=== PATIENT | female | born 1950 | race American Indian/Alaskan Native ===

== ENCOUNTER 2019-11-18 20:52 | Emergency (ER) | payer MEDICARE ==
[2019-11-18] MEDS ORDERED: methylPREDNISolone Sod Succinate 125 MG/2 ML INJ IV ONE (21:08)
[2019-11-18] MEDS ORDERED: ALBUTEROL 2.5 MG/3 ML NEBU IH ONE ×3 (21:08→22:46)
[2019-11-18] MEDS ORDERED: IPRATROPIUM 0.02% NEBU 2.5 ML IH ONE ×2 (21:08→21:41)
[2019-11-18] MEDS ORDERED: MAGNESIUM SULFATE 2 GM/50 ML BAG IV ONE ×2 (21:08→22:26)
--- NOTE | 2019-11-18 21:08 | Event Note ---
ED Screening Note Date of service: 11/18/19 Time: 21:06 ED Screening Note: 69 y o female with pmh of asthma presents iwth sob positive intermittent productive cough no relief with nebs albuterol and symbicort inhaler This initial assessment/diagnostic orders/clinical plan/treatment(s) is/are [place] bject to change based on patients health status, clinical progression and re- assessment by fellow clinical providers in the ED. Further treatment and workup at subsequent clinical providers discretion. Patient/guardian urged not to elope from the ED as their condition may be serious if not clinically assessed and managed. Initial orders include: resp treatment steroids cxr acc eval
--- NOTE | 2019-11-18 21:46 | Emergency Department Report ---
ED Shortness of Breath HPI - General Chief Complaint: Dyspnea/Respdistress Stated Complaint: SHORTNESS OF BREATH Time Seen by Provider: 11/18/19 21:37 Source: patient Mode of arrival: Ambulatory Limitations: No Limitations - History of Present Illness Initial Comments: Patient is 69 years old female with history of asthma and hypertension and coronary artery disease. Patient presented to the ER complaining of 5 day history of shortness of breath, wheezing or difficulty in breathing and cough, nonproductive. Patient denied any fever or chills. No chest pain. No nausea or vomiting. MD Complaint: shortness of breath, cough, "asthma attack" -: days(s) Known History Of: asthma Context: recent URI - Related Data Home Medications Medication Instructions Recorded Confirmed Last Taken ALBUTEROL Inhaler (OR & NICU) 2 puff IH QID PRN 09/15/13 09/21/13 09/21/13 05:00 [ProAir HFA Inhaler] Beclomethasone Dipropionate [Qvar 2 inhalation IH BID 09/15/13 09/21/13 09/21/13 05:00 80MCG] Esomeprazole Magnesium [NexIUM] 40 mg PO QDAY 09/15/13 09/21/13 09/20/13 Loratadine (Nf) [Claritin (Nf)] 10 mg PO DAILY 09/15/13 09/21/13 09/15/13 Losartan [Cozaar] 100 mg PO QDAY 09/15/13 09/15/13 Unknown Oxybutynin [Ditropan] 5 mg PO TID 09/15/13 09/21/13 09/20/13 Oxycodone HCl/Acetaminophen 1 each PO Q6HR PRN 09/15/13 09/21/13 09/20/13 [Percocet 7.5/325 mg] Pravastatin Sodium [Pravastatin] 40 mg PO QHS 09/15/13 09/21/13 09/07/13 Sucralfate [Carafate] 1 gm PO ONCE 09/15/13 09/15/13 Unknown hydroCHLOROthiazide [HCTZ] 12.5 mg PO QDAY 09/15/13 09/15/13 Unknown hydroCHLOROthiazide [HCTZ] 12.5 mg PO QDAY 09/15/13 09/21/13 09/21/13 05:00 Previous Rx's Medication Instructions Recorded Last Taken Type Clopidogrel Bisulfate [Plavix] 75 mg PO DAILY #30 tablet 09/23/13 Unknown Rx Hydrocodone Bit/Acetaminophen 1 each PO Q6H PRN #30 tablet 09/23/13 Unknown Rx [Lortab 7.5-500 Tablet] Allergies Allergy/AdvReac Type Severity Reaction Status Date / Time adhesive Allergy Rash Verified 09/21/13 06:59 amoxicillin trihydrate Allergy Hives Verified 09/21/13 06:28 [From Augmentin] cefaclor [From Ceclor] Allergy Anaphylaxis Verified 09/21/13 06:59 potassium clavulanate Allergy Hives Verified 09/21/13 06:28 [From Augmentin] meperidine HCl [From Demerol] AdvReac Vomiting Verified 09/21/13 06:28 tetracycline [Tetracycline] AdvReac Vomiting Verified 09/21/13 06:28 ED Review of Systems ROS: Stated complaint: SHORTNESS OF BREATH Other details as noted in HPI Comment: All other systems reviewed and negative Constitutional: denies: chills, fever Respiratory: cough, shortness of breath, SOB with exertion, SOB at rest, wheezing. denies: orthopnea, stridor Cardiovascular: denies: chest pain, palpitations Gastrointestinal: denies: abdominal pain, nausea, vomiting Musculoskeletal: denies: back pain Neurological: denies: headache, weakness, numbness, paresthesias, confusion, abnormal gait ED Past Medical Hx - Past Medical History Previous Medical History?: Yes Hx Hypertension: Yes (2009) Hx Congestive Heart Failure: No Hx Diabetes: No Hx GERD: Yes Hx Arthritis: Yes Hx Asthma: Yes Hx COPD: No - Surgical History Past Surgical History?: Yes Hx Cholecystectomy: Yes - Social History Smoking Status: Former Smoker Substance Use Type: None - Medications Home Medications: Home Medications Medication Instructions Recorded Confirmed Last Taken Type ALBUTEROL Inhaler (OR & NICU) 2 puff IH QID PRN 09/15/13 09/21/13 09/21/13 05:00 History [ProAir HFA Inhaler] Beclomethasone Dipropionate [Qvar 2 inhalation IH BID 09/15/13 09/21/13 09/21/13 05:00 History 80MCG] Esomeprazole Magnesium [NexIUM] 40 mg PO QDAY 09/15/13 09/21/13 09/20/13 History Loratadine (Nf) [Claritin (Nf)] 10 mg PO DAILY 09/15/13 09/21/13 09/15/13 History Losartan [Cozaar] 100 mg PO QDAY 09/15/13 09/15/13 Unknown History Oxybutynin [Ditropan] 5 mg PO TID 09/15/13 09/21/13 09/20/13 History Oxycodone HCl/Acetaminophen 1 each PO Q6HR PRN 09/15/13 09/21/13 09/20/13 History [Percocet 7.5/325 mg] Pravastatin Sodium [Pravastatin] 40 mg PO QHS 09/15/13 09/21/13 09/07/13 History Sucralfate [Carafate] 1 gm PO ONCE 09/15/13 09/15/13 Unknown History hydroCHLOROthiazide [HCTZ] 12.5 mg PO QDAY 09/15/13 09/15/13 Unknown History hydroCHLOROthiazide [HCTZ] 12.5 mg PO QDAY 09/15/13 09/21/13 09/21/13 05:00 History Clopidogrel Bisulfate [Plavix] 75 mg PO DAILY #30 tablet 09/23/13 Unknown Rx Hydrocodone Bit/Acetaminophen 1 each PO Q6H PRN #30 tablet 09/23/13 Unknown Rx [Lortab 7.5-500 Tablet] ED Physical Exam - General Limitations: No Limitations General appearance: alert, in no apparent distress - Head Head exam: Present: atraumatic, normocephalic, normal inspection - Eye Eye exam: Present: normal appearance - ENT ENT exam: Present: normal exam, normal orophraynx, mucous membranes moist - Neck Neck exam: Present: normal inspection, full ROM. Absent: tenderness, meningismus - Respiratory Respiratory exam: Present: wheezes, rhonchi. Absent: rales, stridor, accessory muscle use, decreased breath sounds, prolonged expiratory - Cardiovascular Cardiovascular Exam: Present: regular rate, normal rhythm, normal heart sounds - GI/Abdominal GI/Abdominal exam: Present: soft, normal bowel sounds. Absent: distended, tenderness, guarding, rebound, rigid, organomegaly, mass, bruit, pulsatile mass, hernia - Extremities Exam Extremities exam: Present: normal inspection, full ROM, normal capillary refill. Absent: tenderness, pedal edema, calf tenderness - Back Exam Back exam: Present: normal inspection, full ROM. Absent: CVA tenderness (R), CVA tenderness (L) - Neurological Exam Neurological exam: Present: alert, oriented X3, CN II-XII intact, normal gait, reflexes normal - Psychiatric Psychiatric exam: Present: normal mood - Skin Skin exam: Present: warm, intact, normal color ED Course Vital Signs 11/18/19 11/18/19 20:57 22:57 Temperature 98.8 F Pulse Rate 95 H Respiratory 18 20 Rate Blood Pressure 153/84 O2 Sat by Pulse 95 94 Oximetry ED Medical Decision Making - Lab Data Result diagrams: 11/18/19 22:45 11/18/19 22:45 - Radiology Data Radiology results: report reviewed - Medical Decision Making Patient is 69 years old female with history of asthma and hypertension and coronary artery disease. Patient presented to the ER complaining of 5 day history of shortness of breath, wheezing or difficulty in breathing and cough, nonproductive. Patient denied any fever or chills. No chest pain. No nausea or vomiting. Patient received albuterol, Atrovent, Solu-Medrol and magnesium sulfate. Patient stated that she is feeling much better. Labs reviewed and is unremarkable. Chest x-ray is negative for acute finding. Patient given prescription for prednisone and advised to follow-up with her primary care physician in the next 2-3 days and to return to the ER if symptoms are not improved. Critical care attestation.: If time is entered above; I have spent that time in minutes in the direct care of this critically ill patient, excluding procedure time. ED Disposition Clinical Impression: Asthma exacerbation Disposition: - TO HOME OR SELFCARE Is pt being admited?: No Condition: Stable Instructions: Asthma (ED) Referrals: PRIMARY CARE, [Primary Care Provider] - 3-5 Days
--- NOTE | 2019-11-18 21:55 | XRay Report ---
CHEST 2 VIEWS INDICATION: Dyspnea. COMPARISON: None. FINDINGS: Support devices: None. Heart: Within normal limits. Lungs/Pleura: No acute air space or interstitial disease. No significant pleural effusion. IMPRESSION: No acute findings. Signer Name: James Neff MD Signed: 11/18/2019 9:51 PM Workstation Name: [id number]
[2019-11-18 22:58] LABS: Basophils # (Auto) 0.1 K/mm3 (0.0-0.1); Basophils % (Auto) 0.9 % (0.0-1.8); Hemoglobin 14.2 gm/dl (10.1-14.3); Lymphocytes # (Auto) 2.2 K/mm3 (1.2-5.4); Lymphocytes % (Auto) 28.3 % (13.4-35.0); Mean Corpuscular HGB Conc 33 % (30-34); Mean Corpuscular Volume 92 fl (79-97); Monocytes # (Auto) 0.5 K/mm3 (0.0-0.8); Monocytes % (Auto) 6.4 % (0.0-7.3); Platelet Count 189 K/mm3 (140-440); Red Blood Count 4.67 M/mm3 (3.65-5.03)
[2019-11-18 23:20] LABS: BUN/Creatinine Ratio 19; Blood Urea Nitrogen 13 mg/dL (7-17); Calcium 9.7 mg/dL (8.4-10.2); Hemolysis Index 12
[2019-11-18 23:37] VITALS: BP 129/74
[2019-11-19] MEDS ORDERED: ALBUTEROL 2.5 MG/3 ML NEBU IH SCH (08:00)
== END 2019-11-18 23:37 | disposition home or self-care (01) ==
LOC: ED 20:52
DX: J45.901 Unspecified asthma with (acute) exacerbation (principal); I10 Essential (primary) hypertension; K21.9 Gastro-esophageal reflux disease without esophagitis; M19.90 Unspecified osteoarthritis, unspecified site; Z87.891 Personal history of nicotine dependence; Z79.899 Other long term (current) drug therapy; Z88.1 Allergy status to other antibiotic agents; Z88.8 Allergy status to other drugs, medicaments and biological substances
CPT/HCPCS: 36415; 71046; 80048; 83880; 85025; 94640; 96365; 96375; 99284; J2930; J3475; 94644